=== PATIENT | male | born 1980 | race Caucasian/White ===

== ENCOUNTER 2017-07-29 23:16 | Emergency (ER) | payer OTHER ==
[~2017-07-29] VITALS: Ht 185.4 cm; Wt 69.9 kg
[~2017-07-29 23:16] MED LIST: ADVIL,NUPRIN,M200 MG; AMOXICILLIN500 M1 PO; MOTRIN800 MG PO; PERCOCET 5/31 TABLET PO; PREDNISONE20 MG PO; ZITHROMAX Z-PA250 MG PO
[2017-07-29 23:45] LABS: HEMOGLOBIN 15.4 G/DL (12.5-16.6); MCH 30.6 PG (29.0-34.0); MCV 87.5 FL (86-99); PLATELET COUNT 138 K/uL (156-360); RBC DIS.WIDTH-CV 13.4 % (11.8-14.6); RBC DIS.WIDTH-SD 42.7 % (39-53); RED BLOOD COUNT 5.03 M/uL (4.00-5.50); WHITE BLOOD COUNT 5.6 K/uL (4.1-10.2)
[2017-07-29 23:54] LABS: CHLORIDE 103 mEq/L (99-109); POTASSIUM 3.9 mEq/L (3.7-5.4); SODIUM 139 mEq/L (136-147)
[2017-07-29 23:55] LABS: GLUCOSE 101 mg/dL (70-99)
[2017-07-29 23:59] LABS: CREATININE 1.2 mg/dL (0.6-1.3); GFR ESTIMATE (CALCULATED) > 59 mL/min/ (58.99-99999)
[2017-07-30] LABS: UREA NITROGEN (BUN) 10 mg/dL (9-23)
[2017-07-30] MEDS ORDERED: TAMIFLU75 MG PO (01:52)
[2017-07-30 02:08] VITALS: BP 00/00
== END 2017-07-30 02:09 | disposition home or self-care (01) ==
LOC: EME 23:16
DX: J10.1 Influenza due to other identified influenza virus with other respiratory manifestations (principal); B34.9 Viral infection, unspecified; F17.200 Nicotine dependence, unspecified, uncomplicated; Z87.828 Personal history of other (healed) physical injury and trauma
CPT/HCPCS: 71046; 80048; 85027; 87502; 99281; 99283